=== PATIENT | male | born 1970 | race Caucasian/White ===

== ENCOUNTER 2016-10-30 15:29 | Emergency (ER) | payer OTHER ==
[~2016-10-30] VITALS: Ht 175.3 cm; Wt 72.7 kg
[2016-10-30] MEDS ORDERED: DiphenhydrAMINE HCL 25 MG CAPSULE PO ONE (17:00)
[2016-10-30 17:22] VITALS: BP 142/84
== END 2016-10-30 17:24 | disposition home or self-care (01) ==
LOC: EMS 15:30
DX: L29.9 Pruritus, unspecified (principal); F17.210 Nicotine dependence, cigarettes, uncomplicated; F12.90 Cannabis use, unspecified, uncomplicated
CPT/HCPCS: 99282

== ENCOUNTER 2016-11-09 07:01 | Emergency (ER) | payer OTHER ==
[~2016-11-09] VITALS: Ht 175.3 cm; Wt 70.5 kg
[2016-11-09 07:27] VITALS: BP 102/54
== END 2016-11-09 07:39 | disposition home or self-care (01) ==
LOC: EMS 07:04
DX: B86 Scabies (principal); F17.210 Nicotine dependence, cigarettes, uncomplicated; F12.90 Cannabis use, unspecified, uncomplicated
CPT/HCPCS: 99282

== ENCOUNTER 2016-12-28 20:46 | Emergency (ER) | payer OTHER ==
[~2016-12-28] VITALS: Ht 172.7 cm; Wt 796.0 kg
[2016-12-28] MEDS: PERMETHRIN 5% 60 GM CREAM TP ONE (22:04)
[2016-12-28 22:18] VITALS: BP 131/86
[2016-12-28] MEDS: HydrOXYzine HCL 25 MG TABLET PO ONE (22:20)
== END 2016-12-28 22:21 | disposition home or self-care (01) ==
LOC: EMS 20:48
DX: B86 Scabies (principal); F17.210 Nicotine dependence, cigarettes, uncomplicated; F12.90 Cannabis use, unspecified, uncomplicated
CPT/HCPCS: 99283

== ENCOUNTER 2017-02-22 13:05 | Emergency (ER) | payer OTHER ==
[~2017-02-22] VITALS: Ht 175.3 cm; Wt 71.0 kg
[2017-02-22 15:54] VITALS: BP 155/61
== END 2017-02-22 16:41 | disposition home or self-care (01) ==
LOC: EMS 13:06
DX: T81.31XA Disruption of external operation (surgical) wound, not elsewhere classified, initial encounter (principal); L08.9 Local infection of the skin and subcutaneous tissue, unspecified; F17.210 Nicotine dependence, cigarettes, uncomplicated; F12.10 Cannabis abuse, uncomplicated; F10.20 Alcohol dependence, uncomplicated; Y92.9 Unspecified place or not applicable
CPT/HCPCS: 99283

== ENCOUNTER 2017-03-22 12:08 | Inpatient (IN) | payer OTHER ==
[~2017-03-22] VITALS: Ht 175.3 cm; Wt 65.0 kg
[~2017-03-22 12:08] MED LIST: ANTIBIOTICS; NO MEDS; NOCURR
[2017-03-22] MEDS ORDERED: ONDANSETRON HCL 4 MG/2 ML VIAL IVP ONE (13:00)
[2017-03-22] MEDS ORDERED: SODIUM CHLORIDE 0.9% 1,000 ML IV ONE (13:00)
[2017-03-22 13:04] LABS: EOSINOPHILS % (AUTO) 0.08 % (1.0-6.0); HEMATOCRIT 42.5 % (41-53); HEMOGLOBIN 14.2 g/dL (13.5-17.5); LYMPHOCYTES # (AUTO) 2.7 K/uL (1.0-4.8); LYMPHOCYTES % (AUTO) 44.7 % (22.0-44.0); MEAN CORPUSCULAR HEMOGLOBIN 32.4 pg (26.0-34.0); MEAN CORPUSCULAR HGB CONC 33.3 G/dL (31.0-37.0); MEAN CORPUSCULAR VOLUME 97 fL (80-100); MONOCYTES # (AUTO) 1.2 K/uL (0.1-1.0); MONOCYTES % (AUTO) 18.9 % (2.0-9.0); NEUTROPHILS # (AUTO) 2.2 K/uL (1.8-7.7); NEUTROPHILS % (AUTO) 36.3 % (40.0-70.0); PLATELET COUNT (AUTO) 129 K/uL (150-450); RED BLOOD CELL COUNT(AUTO) 4.37 MIL/uL (4.50-5.90); RED CELL DISTRIBUTION WIDTH 16.2 % (11.5-14.5); WHITE BLOOD COUNT (AUTO) 6.1 K/uL (4.5-11.0)
[2017-03-22 13:12] LABS: INR 1.2 (0.9-1.1); PROTHROMBIN TIME 12.7 SEC (9.4-11.6)
[2017-03-22 13:19] LABS: ANION GAP 13 mmol/L (8-16); CALCIUM, TOTAL 8.2 mg/dL (8.8-10.5); CARBON DIOXIDE 25 mmol/L (22-29); CHLORIDE 93 mmol/L (98-107); CREATININE 0.81 mg/dL (0.60-1.30); GLOMERULAR FILTR. RATE CALC > 60 mL/min (>60); SODIUM SERUM 131 mmol/L (136-145)
[2017-03-22 13:29] LABS: ALANINE AMINOTRANSFERASE 2361 U/L (12-78); ALBUMIN 2.7 g/dL (3.4-5.0); BILIRUBIN,TOTAL 10.1 mg/dL (0.1-1.0); TOTAL PROTEIN, SERUM 7.1 g/dL (6.4-8.2)
[2017-03-22 13:46] LABS: UREA NITROGEN, BLOOD 5 mg/dL (7-18)
[2017-03-22 14:10] LABS: ASPARTATE AMINOTRANSFERASE 3271 U/L (15-37)
[2017-03-22] MEDS ORDERED: ONDANSETRON HCL 4 MG/2 ML VIAL IVP PRN ×2 (15:45→20:45)
[2017-03-22 16:58] VITALS: BP 110/73
[2017-03-22 19:46] VITALS: BP 111/66
[2017-03-22] MEDS ORDERED: ALBUTEROL SULFATE 2.5 MG/0.5 ML NEB SOLUTION NEB PRN (20:45)
[2017-03-22] MEDS ORDERED: MORPHINE SULFATE 4 MG/ML SYRINGE IVP PRN (20:45)
[2017-03-22] MEDS ORDERED: BISACODYL 10 MG RECTAL RECTAL SUPPOSITORY PR PRN (20:45)
[2017-03-22] MEDS ORDERED: IPRATROPIUM BROMIDE 0.5 MG/2.5 ML NEB SOLUTION NEB PRN (20:45)
[2017-03-22] MEDS ORDERED: ZOLPIDEM TARTRATE 5 MG TABLET PO PRN (20:45)
[2017-03-22] MEDS ORDERED: MAGNESIUM HYDROXIDE SUSPENSION 30 ML UDCUP PO PRN (20:45)
[2017-03-22] MEDS: DOCUSATE SODIUM 100 MG CAPSULE PO SCH (21:00)
[2017-03-22] MEDS ORDERED: LORazepam 2 MG/ML VIAL IVP PRN (21:00)
[2017-03-22] MEDS: SODIUM CHLORIDE 0.9% 1,000 ML IV SCH (22:13)
[2017-03-22] MEDS: ChlordiazePOXIDE HCL 25 MG CAPSULE PO SCH (23:24)
[2017-03-22 23:39] VITALS: BP 113/71
[2017-03-23] MEDS ORDERED: HEPARIN SODIUM,PORCINE 5,000 UNITS/ML VIAL SQ SCH
[2017-03-23] MEDS: ACETAMINOPHEN 325 MG TABLET PO PRN ×2 (01:19→15:16)
[2017-03-23 03:34] LABS: APPEARANCE,URINE CLEAR (CLEAR); GLUCOSE, URINE (UA) NEGATIVE (NEGATIVE); KETONES,URINE 40 mg/dL (NEGATIVE); LEUKOCYTE ESTERASE ,URINE NEGATIVE (NEGATIVE); OCCULT BLOOD,URINE NEGATIVE (NEGATIVE); PH,URINE 6.5 (5.0-8.0); PROTEIN,URINE NEGATIVE (NEGATIVE)
[2017-03-23 03:37] LABS: ADD UA MICROSCOPIC NO
[2017-03-23 04:48] VITALS: BP 117/72
[2017-03-23] MEDS: ChlordiazePOXIDE HCL 25 MG CAPSULE PO SCH ×2 (05:12→11:27)
[2017-03-23 05:42] LABS: BASOPHILS % (AUTO) 0.3 % (0.0-2.0); EOSINOPHILS % (AUTO) 0.3 % (1.0-6.0); HEMATOCRIT 35.6 % (41-53); HEMOGLOBIN 12.3 g/dL (13.5-17.5); LYMPHOCYTES # (AUTO) 0.8 K/uL (1.0-4.8); LYMPHOCYTES % (AUTO) 13.9 % (22.0-44.0); MEAN CORPUSCULAR HEMOGLOBIN 32.5 pg (26.0-34.0); MEAN CORPUSCULAR HGB CONC 34.7 G/dL (31.0-37.0); MEAN CORPUSCULAR VOLUME 94 fL (80-100); MONOCYTES # (AUTO) 1.2 K/uL (0.1-1.0); MONOCYTES % (AUTO) 21.7 % (2.0-9.0); NEUTROPHILS # (AUTO) 3.5 K/uL (1.8-7.7); NEUTROPHILS % (AUTO) 63.8 % (40.0-70.0); PLATELET COUNT (AUTO) 130 K/uL (150-450); RED BLOOD CELL COUNT(AUTO) 3.79 MIL/uL (4.50-5.90); RED CELL DISTRIBUTION WIDTH 16.3 % (11.5-14.5); WHITE BLOOD COUNT (AUTO) 5.4 K/uL (4.5-11.0)
[2017-03-23 07:12] VITALS: BP 115/82
[2017-03-23 07:25] LABS: ALANINE AMINOTRANSFERASE 1658 U/L (12-78); ALBUMIN 2.1 g/dL (3.4-5.0); ANION GAP 5 mmol/L (8-16); BILIRUBIN,TOTAL 9.2 mg/dL (0.1-1.0); CALCIUM, TOTAL 7.6 mg/dL (8.8-10.5); CARBON DIOXIDE 29 mmol/L (22-29); CHLORIDE 96 mmol/L (98-107); CREATININE 0.69 mg/dL (0.60-1.30); GLOMERULAR FILTR. RATE CALC > 60 mL/min (>60); POTASSIUM 3.6 mmol/L (3.5-5.1); SODIUM SERUM 130 mmol/L (136-145); TOTAL PROTEIN, SERUM 5.7 g/dL (6.4-8.2); UREA NITROGEN, BLOOD 3 mg/dL (7-18)
[2017-03-23 07:55] LABS: ASPARTATE AMINOTRANSFERASE 2116 U/L (15-37)
[2017-03-23] MEDS: MULTIVITAMINS, THERAPEUTIC TABLET PO SCH (08:54)
[2017-03-23] MEDS: DOCUSATE SODIUM 100 MG CAPSULE PO SCH ×2 (08:54→20:30)
[2017-03-23] MEDS: THIAMINE HCL 100 MG TABLET PO SCH (08:54)
[2017-03-23] MEDS: PANTOPRAZOLE SODIUM 40 MG/VIAL IVP SCH (08:54)
[2017-03-23] MEDS: FOLIC ACID 1 MG TABLET PO SCH (08:54)
[2017-03-23 11:21] VITALS: BP 99/68
[2017-03-23] MEDS: SODIUM CHLORIDE 0.9% 1,000 ML IV SCH (15:16)
[2017-03-23 15:41] VITALS: BP 121/76
[2017-03-23 19:22] VITALS: BP 96/61
[2017-03-23 23:07] VITALS: BP 112/72
[2017-03-24] MEDS: HYDROCODONE/ACETAMINOPHEN 5-325 MG TABLET PO PRN ×2 (01:38→18:09)
[2017-03-24] MEDS: SODIUM CHLORIDE 0.9% 1,000 ML IV SCH ×2 (02:02→15:54)
[2017-03-24 04:00] VITALS: BP 100/63
[2017-03-24] MEDS: ChlordiazePOXIDE HCL 25 MG CAPSULE PO SCH ×4 (06:07→23:51)
[2017-03-24 06:42] LABS: BASOPHILS % (AUTO) 0.1 % (0.0-2.0); EOSINOPHILS # (AUTO) 0.01 K/uL (0.00-0.70); EOSINOPHILS % (AUTO) 0.17 % (1.0-6.0); HEMATOCRIT 39.9 % (41-53); HEMOGLOBIN 13.2 g/dL (13.5-17.5); LYMPHOCYTES # (AUTO) 2.7 K/uL (1.0-4.8); LYMPHOCYTES % (AUTO) 52.7 % (22.0-44.0); MEAN CORPUSCULAR HEMOGLOBIN 32.2 pg (26.0-34.0); MEAN CORPUSCULAR HGB CONC 33.1 G/dL (31.0-37.0); MEAN CORPUSCULAR VOLUME 97 fL (80-100); MONOCYTES # (AUTO) 0.6 K/uL (0.1-1.0); MONOCYTES % (AUTO) 11.7 % (2.0-9.0); NEUTROPHILS # (AUTO) 1.8 K/uL (1.8-7.7); NEUTROPHILS % (AUTO) 35.4 % (40.0-70.0); PLATELET COUNT (AUTO) 123 K/uL (150-450); RED BLOOD CELL COUNT(AUTO) 4.11 MIL/uL (4.50-5.90); RED CELL DISTRIBUTION WIDTH 16.6 % (11.5-14.5); WHITE BLOOD COUNT (AUTO) 5.1 K/uL (4.5-11.0)
[2017-03-24 06:58] LABS: ALANINE AMINOTRANSFERASE 1300 U/L (12-78); ALBUMIN 2.1 g/dL (3.4-5.0); ANION GAP 3 mmol/L (8-16); BILIRUBIN,TOTAL 10.2 mg/dL (0.1-1.0); CALCIUM, TOTAL 8.1 mg/dL (8.8-10.5); CARBON DIOXIDE 31 mmol/L (22-29); CHLORIDE 99 mmol/L (98-107); CREATININE 0.71 mg/dL (0.60-1.30); GLOMERULAR FILTR. RATE CALC > 60 mL/min (>60); POTASSIUM 3.6 mmol/L (3.5-5.1); SODIUM SERUM 133 mmol/L (136-145); TOTAL PROTEIN, SERUM 6.1 g/dL (6.4-8.2)
[2017-03-24 07:01] LABS: ASPARTATE AMINOTRANSFERASE 1126 U/L (15-37)
[2017-03-24 07:08] LABS: UREA NITROGEN, BLOOD 2 mg/dL (7-18)
[2017-03-24 07:35] VITALS: BP 111/55
[2017-03-24] MEDS: PANTOPRAZOLE SODIUM 40 MG/VIAL IVP SCH (08:04)
[2017-03-24] MEDS: THIAMINE HCL 100 MG TABLET PO SCH (08:04)
[2017-03-24] MEDS: FOLIC ACID 1 MG TABLET PO SCH (08:04)
[2017-03-24] MEDS: MULTIVITAMINS, THERAPEUTIC TABLET PO SCH (08:04)
[2017-03-24] MEDS: DOCUSATE SODIUM 100 MG CAPSULE PO SCH ×2 (08:04→20:13)
[2017-03-24 11:34] VITALS: BP 99/60
[2017-03-24] MEDS: ACETAMINOPHEN 325 MG TABLET PO PRN (15:53)
[2017-03-24 16:04] VITALS: BP 101/69
[2017-03-24 20:03] VITALS: BP 93/59
[2017-03-25 00:08] VITALS: BP 106/66
[2017-03-25] MEDS: SODIUM CHLORIDE 0.9% 1,000 ML IV SCH (05:07)
[2017-03-25 05:23] VITALS: BP 114/71
[2017-03-25] MEDS: ChlordiazePOXIDE HCL 25 MG CAPSULE PO SCH (05:52)
[2017-03-25 06:31] LABS: INR 1.2 (0.9-1.1); PROTHROMBIN TIME 13.1 SEC (9.4-11.6)
[2017-03-25 07:25] LABS: ALANINE AMINOTRANSFERASE 889 U/L (12-78); ANION GAP 6 mmol/L (8-16); ASPARTATE AMINOTRANSFERASE 535 U/L (15-37); BILIRUBIN,TOTAL 8.9 mg/dL (0.1-1.0); CALCIUM, TOTAL 8.1 mg/dL (8.8-10.5); CARBON DIOXIDE 28 mmol/L (22-29); CHLORIDE 98 mmol/L (98-107); CREATININE 0.73 mg/dL (0.60-1.30); GLOMERULAR FILTR. RATE CALC > 60 mL/min (>60); POTASSIUM 3.9 mmol/L (3.5-5.1); SODIUM SERUM 132 mmol/L (136-145); TOTAL PROTEIN, SERUM 6.1 g/dL (6.4-8.2); UREA NITROGEN, BLOOD 2 mg/dL (7-18)
[2017-03-25] MEDS: DOCUSATE SODIUM 100 MG CAPSULE PO SCH (07:38)
[2017-03-25] MEDS: HYDROCODONE/ACETAMINOPHEN 5-325 MG TABLET PO PRN (07:38)
[2017-03-25] MEDS: FOLIC ACID 1 MG TABLET PO SCH (07:38)
[2017-03-25] MEDS: PANTOPRAZOLE SODIUM 40 MG/VIAL IVP SCH (07:38)
[2017-03-25] MEDS: THIAMINE HCL 100 MG TABLET PO SCH (07:38)
[2017-03-25] MEDS: MULTIVITAMINS, THERAPEUTIC TABLET PO SCH (07:38)
[2017-03-25 07:54] VITALS: BP 104/63
[2017-03-25 08:01] LABS: HEMOGLOBIN 12.3 g/dL (13.5-17.5); MEAN CORPUSCULAR HGB CONC 33.3 G/dL (31.0-37.0); MEAN CORPUSCULAR VOLUME 96 fL (80-100); RED BLOOD CELL COUNT(AUTO) 3.85 MIL/uL (4.50-5.90); RED CELL DISTRIBUTION WIDTH 16.7 % (11.5-14.5); WHITE BLOOD COUNT (AUTO) 5.5 K/uL (4.5-11.0)
[2017-03-25 09:14] LABS: PLATELET COUNT (AUTO) 118 K/uL (150-450)
[2017-03-25 09:18] LABS: BAND NEUTROPHILS % (MANUAL) 4 % (1-5); EOSINOPHILS % (MANUAL) 1 % (1-6); LYMPHOCYTES % (MANUAL) 24 % (22-44); TOTAL CELLS COUNTED 100
== END 2017-03-25 08:35 | disposition home or self-care (01) ==
LOC: EMS 12:13 → 6N 16:32
PROVIDERS: ADMIT Hospitalist; ATTEND Hospitalist
DX: B15.9 Hepatitis A without hepatic coma (principal); E87.0 Hyperosmolality and hypernatremia; E44.0 Moderate protein-calorie malnutrition; D69.6 Thrombocytopenia, unspecified; F10.20 Alcohol dependence, uncomplicated; F17.210 Nicotine dependence, cigarettes, uncomplicated; F12.90 Cannabis use, unspecified, uncomplicated; R74.0 Nonspecific elevation of levels of transaminase and lactic acid dehydrogenase [LDH]; Z59.0 Homelessness
CPT/HCPCS: 87040; 96361; 96374; 99285; C9113; J2405; J7030

== ENCOUNTER 2018-05-01 16:04 | Emergency (ER) | payer OTHER ==
[~2018-05-01] VITALS: Ht 170.2 cm; Wt 63.6 kg
[2018-05-01 16:22] VITALS: BP 122/70
== END 2018-05-01 16:27 | disposition home or self-care (01) ==
LOC: EMS 16:05
DX: B86 Scabies (principal); F17.210 Nicotine dependence, cigarettes, uncomplicated; F12.90 Cannabis use, unspecified, uncomplicated
CPT/HCPCS: 99281; 99282; 99406